=== PATIENT | male | born 1995 | race Caucasian/White ===

== ENCOUNTER 2021-04-15 21:37 | Emergency (ER) | payer BC, SELFPAY ==
[2021-04-15 21:38] VITALS: BP 155/79; PULSE 87; RESP 18; TEMP 36.4; O2SAT 97; BMI 30.6
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
[2021-04-15 23:30] VITALS: PULSE 82; RESP 16; O2SAT 97
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
== END 2021-04-15 23:30 | disposition home or self-care (01) ==
PROVIDERS: Emergency Provider Emergency Medicine
DX: S09.90XA Unspecified injury of head, initial encounter (principal); V47.6XXA Car passenger injured in collision with fixed or stationary object in traffic accident, initial encounter
CPT/HCPCS: 70450; 72125; 99282